=== PATIENT | male | born 1955 | race Caucasian/White ===

== ENCOUNTER 2023-08-26 12:27 | Emergency (ER) | payer MEDICARE, SELFPAY ==
[2023-08-26 12:40] VITALS: BP 214/96; PULSE 87; RESP 22; TEMP 36.8; O2SAT 99; BMI 28.0
--- NOTE | 2023-08-26 12:49 | XR_ITS ---
PROCEDURE INFORMATION: Exam: XR Right Wrist Exam date and time: 08/26/2023 1:08 PM Age: 68 years old Clinical indication: Pain; Wrist; Right; Additional info: Hurt it throwing net TECHNIQUE: Imaging protocol: Radiologic exam of the right wrist. Views: 3 or more views. COMPARISON: No relevant prior studies available. FINDINGS: Bones/joints: Normal. Soft tissues: Mild diffuse soft tissue swelling IMPRESSION: No evidence of acute osseous injury.
--- NOTE | 2023-08-26 13:18 | EXP.UTC ---
Discharge Plan Disposition Patient Disposition: Home, Self-Care Condition: Good Prescriptions Prescriptions: No Action No Known Home Medications Referrals Follow up/Referrals: Provider,Referral, MD [Primary Care Provider] - See instructions Activity Restrictions/Add. Instructions Additional Instructions/Restrictions: *RICE, Rest the extremity, Ice 15-20 minutes 3-4 times daily, Compress- wear the isaac wrap as discussed as much as possible to help reduce swelling and pain, Elevate the extremity when at rest *Velcro Wrist splint is for support and help control swelling, use it except in the shower. Be sure that is not to tight but not to loose either *Elevate when resting? *Ibuprofen 600-800mg every 6-8 hours as needed for pain an inflammation. If need something more can take Tylenol in between doses of Ibuprofen to help Immediately follow up with your family doctor for new or worsening of symptoms, or no noticeable improvement over the next 3-5 days Clinical Impressions Clinical Impression: Right wrist sprain Qualifiers: Encounter type: initial encounter Qualified Code(s): S63.501A - Unspecified sprain of right wrist, initial encounter Instructions Patient Instructions: Wrist Sprain, DI for Wrist Sprain, How To Perform RICE (Rest, Ice, Compress, Elevate) Discharge ED Provider: Daria Manriquez [facility] General Stated complaint: ao 08/25 right wrist pain Mode of Arrival: Ambulatory Source of Information: Patient Limitations: No Limitations Time Seen by Provider: 08/26/23 13:18 Description of Symptoms (Recalled from Triage Doc. by RN): PATIENT C/O PAIN TO RIGHT WRIST THAT STARTED AFTER HE WAS THROWING A FISHING NET TODAY HEENT Symptoms (Recalled from RN notes): No Resp Symptoms (Recalled from RN notes): No Skin Symptoms (Recalled from RN notes): No MS Symptoms (Recalled from RN notes): Yes Functional Status (Recalled from RN notes): WNL History of Present Illness Provider Complaint: Patient states that he was throwing a fish net earlier trying to catch minnows and started having pain in his right wrist States pain is worse when he moves it certain ways so he wanted to come in and get it checked Related Data Home Medications Medication Instructions Recorded Confirmed No Known Home Medications 08/26/23 08/26/23 Allergies Allergy/AdvReac Type Severity Reaction Status Date / Time tramadol AdvReac Verified 06/11/17 17:32 Worker's Comp Is this a Worker's Comp case?: No [facility] Disclaimer: The information contained in this section may have been updated after the patient was seen, as this information can be updated by other users. Social History Smoking Status: Unknown if ever smoked alcohol intake: never current occupational status: unemployed Travel in the last 8 weeks: None ROS Obtained: Yes All systems reviewed & no additional complaints except as documented and Yes Systems reviewed as appropriate & no additional complaints except as documented Constitutional Constitutional: Reports system reviewed and no additional complaints, except as documented and Reports as per HPI ENT Ears, Nose, Mouth, and Throat: Reports system reviewed and no additional complaints, except as documented and Reports as per HPI Cardiovascular Cardiovascular: Reports system reviewed and no additional complaints, except as documented and Reports as per HPI Respiratory Respiratory: Reports system reviewed and no additional complaints, except as documented and Reports as per HPI Gastrointestinal Gastrointestingal: Reports system reviewed and no additional complaints, except as documented and as per HPI Musculoskeletal Musculoskeletal: Reports system reviewed and no additional complaints, except as documented, Reports as per HPI and Reports other (Pain in right wrist with movement after hurting it throwing a net) Physical Exam General General appearance: alert and in no apparent distress ENT ENT exam: Present mucous membranes moist Respiratory Respiratory exam: Present normal lung sounds bilaterally; Absent respiratory distress or wheezes Cardiovascular Cardiovascular exam: Present regular rate, normal rhythm and normal heart sounds Expanded Upper Extremity Exam Right: Forearm/Wrist exam: Present tenderness; Absent swelling Neurological Exam Neurological exam: Present alert, oriented X3 and normal gait Medical Decision Making Travis Inquiry Pt receiving controlled substance: No Travis was queried for this patient: No Vital Signs: 08/26/23 12:40 Temperature 98.2 F Temperature Source Oral Pulse Rate [Left Brachial] 87 Respiratory Rate 22 Blood Pressure [Left Arm] 214/96 H Blood Pressure Mean [Left Arm] 135 Blood Pressure Source [Left Arm] Automatic Cuff Blood Pressure Position [Left Arm] Sitting 02 Sat by Pulse Oximetry 99 Oxygen Delivery Method Room Air Orders (Tests/Meds): ORDERS Category Date Time Status Wrist XR right minimum 3 views [XR wrist RT min 3V] Exams 08/26/23 12:49 Ordered Stat Radiology Data #1: Image(s): Wrist Image Reviewed: Yes I have reviewed radiologist's interpretation FINDINGS: Bones/joints: Normal. Soft tissues: Mild diffuse soft tissue swelling IMPRESSION: No evidence of acute osseous injury. Medical Decision Narrative: Patients blood pressure found to be elevated Concerned with how high his blood pressure was discussed with patient and recommended transfer to the ED for further evaluation and treatment and he declined States he isnt here for his blood pressure he is here for his wrist, Discussed with starting him on something for his blood pressure and have him follow up with PCP patient states they give him medication years ago and he threw it in the trash then and didnt want it now Patient was educated on risks even and he still declined transfer Patient standing in door has velcro wrist splint on States he does not want to wait for xray results he was going to leave, again discussed with patient about treatment for or transfer too the ED due to blood pressure and again he declined both states he wasnt here for the Blood pressure he did not wanted treated for it Patient given strict return precautions and will call if anything seen on xray
[2023-08-26 13:59] VITALS: BP 214/96; PULSE 87; RESP 22; TEMP 36.8; O2SAT 99
== END 2023-08-26 14:07 | disposition home or self-care (01) ==
PROVIDERS: Emergency Provider Nurse Practitioner
DX: S63.501A Unspecified sprain of right wrist, initial encounter (principal); X50.0XXA Overexertion from strenuous movement or load, initial encounter
CPT/HCPCS: 73110; 99203; 99212; G0463

== ENCOUNTER 2023-10-04 13:42 | Emergency (ER) | payer MEDICARE, SELFPAY ==
[2023-10-04 13:42] VITALS: BP 188/92; PULSE 86; RESP 20; TEMP 36.9; O2SAT 98; BMI 28.2
[2023-10-04] MEDS: LACTATED RINGERS 1000ML 1,000 ML 999 ML IV (14:03)
--- NOTE | 2023-10-04 14:06 | ECG_ITS ---
APPROVED REPORT Exam: Resting ECG HR:76 bpm ECG Measurements Heart Rate 76 AXES NM 159 P 59 QRSd 86 QRS 20 QT 354 T 29 QTc 385 Conclusion SINUS RHYTHM NORMAL ECG Electronically signed by : WALDO CORONADO, 10/09/2023 18:25:05
[2023-10-04 14:07] LABS: Microscopic, Urine URINE MICROSCOPIC (MICROSCOPIC)
[2023-10-04 14:08] LABS: Basophils # 0.1 K/mm3 (0-0.2); Basophils % 0.8 % (0.1-2.0); Eosinophils # 0.2 K/mm3 (0.0-0.4); Hematocrit 46.9 % (42.0-52.0); Hemoglobin 15.1 g/dL (14.1-18.0); Lymphocytes # 1.8 K/mm3 (0.7-4.5); Lymphocytes % 17.6 % (10-50); Mean Corpuscular HGB Conc 32.3 g/dL (31.8-35.4); Mean Corpuscular Hemoglobin 30.3 pg (27.0-31.2); Mean Corpuscular Volume 93.9 fl (80-94); Mean Platelet Volume 9.3 fl (7.4-10.4); Monocytes # 0.5 K/mm3 (0.1-1.0); Monocytes % 5.3 % (1.7-9.3); Neutrophils # 7.6 K/mm3 (1.8-7.8); Neutrophils % 74.3 % (37.0-80.0); Platelet Count 310 K/mm3 (142-424); Red Blood Count 4.99 M/mm3 (4.60-6.20); Red Cell Distribution Width 14.2 % (11.5-17.5); White Blood Count 10.2 K/mm3 (4.8-10.8)
--- NOTE | 2023-10-04 14:08 | ED_ITS ---
Discharge Plan Disposition Patient Disposition: Home, Self-Care Condition: Good Prescriptions Prescriptions: No Action No Known Home Medications Referrals Follow up/Referrals: Sandra Capellan APRN [Primary Care Provider] - See instructions Activity Restrictions/Add. Instructions Additional Instructions/Restrictions: Please have adequate p.o. intake, drink plenty of fluids, Gatorade/water, limit working out in heat conditions, take frequent breaks follow-up primary care provider. Clinical Impressions Clinical Impression: Near syncope Instructions Patient Instructions: DI for Muscle Weakness Print Language Print Language: Armenian Discharge ED Provider: Cm Tracy General Adult HPI <JIMMY Chambers - Last Filed: 10/04/23 14:49> General Chief complaint: Weakness Stated complaint: Heat Exposure Time Seen by Provider: 10/04/23 14:07 Mode of Arrival: Ambulatory Source of Information: Patient and EMS Limitations: No Limitations Description of Symptoms (Recalled from ER Triage Doc. by RN): pt was working out in heat and got dizzy and high bp and felt light headed and neighbor called 911 History of Present Illness HPI narrative: 68-year-old male presents emergency department for near syncope/presyncopal episode, prior to arrival, patient states he was weed eating , when he started feeling faint, he denies any true LOC, denies striking her head, denies any fever, chills, chest pain, shortness of breath, states he had a headache after the episode, but this is resolved, denies any nausea, abdominal pain, constipation, diarrhea, vomiting, denies any urinary type symptomatology. Denies any dizziness or weakness currently. He states he feels fine . The past medical history consistent with CAD, hypertension, prior data deficient CVA/TIAs only other medication he takes at home is metoprolol, he is a current everyday smoker, denies any alcohol or drug use. Initial triage vitals are remarkable. Onset (ago): minute(s) Related Data Home Medications ?Medication ?Instructions ?Recorded ?Confirmed No Known Home Medications 08/26/23 08/26/23 Allergies Allergy/AdvReac Type Severity Reaction Status Date / Time tramadol AdvReac Verified 06/11/17 17:32 PFSH <JIMMY Chambers - Last Filed: 10/04/23 14:49> [facility] Disclaimer: The information contained in this section may have been updated after the patient was seen, as this information can be updated by other users. Social History (Updated 08/26/23 @ 14:05 by Daria Manriquez APRN) Smoking Status: Current every day smoker alcohol intake: never current occupational status: unemployed Travel in the last 8 weeks: None <JIMMY Chambers - Last Filed: 10/04/23 14:49> ROS Obtained: Yes All systems reviewed & no additional complaints except as documented Physical Exam <JIMMY Chambers - Last Filed: 10/04/23 14:49> General General appearance: alert and in no apparent distress Head Head exam: atraumatic and normocephalic Eye Eye exam: Present PERRL and EOMI ENT ENT exam: Present mucous membranes moist Neck Neck exam: Present normal inspection Chest Chest inspection: Present normal inspection and symmetric chest wall rise Respiratory Respiratory exam: Present normal lung sounds bilaterally; Absent respiratory distress Cardiovascular Cardiovascular exam: Present regular rate and normal rhythm Abdominal Exam Abdominal exam: Present soft; Absent tenderness Extremities Exam Extremities exam: Present normal inspection Neurological Exam Neurological exam: Present alert and oriented X3 Psychiatric Psychiatric exam: Present normal affect Skin Skin exam: Present warm and dry Medical Decision Making <JIMMY Chambers - Last Filed: 10/04/23 14:49> Medical Records Medical records reviewed: Yes I reviewed the patient's medical records. Travis Inquiry Pt receiving controlled substance: No Travis was queried for this patient: No Vital Signs: 10/04/23 13:42 10/04/23 14:30 10/04/23 14:51 Temperature 98.4 F 98.4 F Temperature Source Oral Oral Pulse Rate 72 78 Pulse Rate [Right Radial] 86 Respiratory Rate 20 16 20 Blood Pressure 155/70 H 155/70 H Blood Pressure [Right Arm] 188/92 H Blood Pressure Mean 98 Blood Pressure Mean [Right Arm] 124 Blood Pressure Source Automatic Cuff 02 Sat by Pulse Oximetry 98 95 Oxygen Delivery Method Room Air Room Air Lab Data Lab Results 10/04/23 13:50: Urine Color Yellow, Urine Appearance Clear, Urine pH 6.0, Ur Specific [place] >= 1.030, Urine Protein Negative, Urine Glucose (UA) Negative, Urine Ketones Negative, Urine Blood Negative, Urine Nitrate Negative, Urine Bilirubin 1+ A, Urine Urobilinogen 1.0, Ur Leukocyte Esterase Negative, Urine RBC None, Urine WBC None, Ur Squamous Epith Cells None, Urine Bacteria None 10/04/23 14:00: WBC 10.2, RBC 4.99, Hgb 15.1, Hct 46.9, MCV 93.9, MCH 30.3, MCHC 32.3, RDW 14.2, Plt Count 310, MPV 9.3, Neut % (Auto) 74.3, Lymph % (Auto) 17.6, [place] % (Auto) 5.3, Eos % (Auto) 2.0, Baso % (Auto) 0.8, Neut # (Auto) 7.6, Lymph # (Auto) 1.8, [place] # (Auto) 0.5, Eos # (Auto) 0.2, Baso # (Auto) 0.1, Sodium 139, Potassium 3.8, Chloride 110 H, Carbon Dioxide 22, Anion Gap 10.8, BUN 20, Creatinine 1.20, Estimated Creat Clear 64, Estimated GFR 60, Est GFR ( Amer) 72, Glucose 127 H, Calcium 8.7, Total Bilirubin 0.9, AST 30, ALT 25, Alkaline Phosphatase 46, Troponin I < 0.01, Total Protein 7.1, Albumin 4.2, Globulin 2.9, Albumin/Globulin Ratio 1.4 10/04/23 14:00 10/04/23 14:00 Orders (Tests/Meds): ED MEDICATIONS Discontinued Medications Generic Name Dose Route Start Last Admin Trade Name Freq PRN Reason Stop Dose Admin Lactated Ringer's 1,000 mls @ 999 mls/hr 10/04/23 14:01 10/04/23 14:03 Lactated Ringer's 1000 Ml Bag IV 10/04/23 15:01 999 mls/hr .Q1H1M ONE Administration ORDERS Category Date Time Status Complete Blood Count Auto Diff Stat Lab 10/04/23 14:00 Completed Comprehensive Metabolic Panel Stat Lab 10/04/23 14:00 Completed Troponin I Stat Lab 10/04/23 14:00 Completed Urinalysis and Microscopic Stat Lab 10/04/23 13:50 Completed Medical Decision Narrative: 68-year-old male presents emergency department for a presyncope/near syncopal episode just prior to arrival, differential diagnose include but not limited to, vasovagal syncope, situational sigmoid, cardiogenic syncope, heat related illness, acute dehydration, JESUS, cardiac arrhythmia, electrolyte disturbance. Obtain CBC CMP, troponin, EKG, urinalysis for further evaluation of characterization, will give 1 L LR IV for fluid resuscitation. Reviewed the patient's EKG, NSR at 76 bpm, ME interval and QT interval within normal limits, no STEMI CBC unremarkable CMP notable for mildly elevated chloride level at 110 Remainder of CMP is unremarkable, troponin is within normal limits Urinalysis grossly unremarkable. Patient states he would like to go home , he states he will drink adequate p.o. intake, he has not yet finished his IV fluid administration, and he reviews remainder of his fluids. Strict ED return precautions given to the patient family the bedside, patient pain agreement current treatment plan/discharge plan, was likely this is a presyncopal episode, could be due to heat related illness, discussed with the patient, patient will follow-up with PCP as directed. Patient voiced understanding agreement current treatment plan/discharge plan. Patient has no other red flag signs and symptoms, vitals remained hemodynamically stable throughout his time in the emergency department. <Issac Orta MD - Last Filed: 10/05/23 14:57> Vital Signs: 10/04/23 13:42 10/04/23 14:30 10/04/23 14:51 Temperature 98.4 F 98.4 F Temperature Source Oral Oral Pulse Rate 72 78 Pulse Rate [Right Radial] 86 Respiratory Rate 20 16 20 Blood Pressure 155/70 H 155/70 H Blood Pressure [Right Arm] 188/92 H Blood Pressure Mean 98 Blood Pressure Mean [Right Arm] 124 Blood Pressure Source Automatic Cuff 02 Sat by Pulse Oximetry 98 95 Oxygen Delivery Method Room Air Room Air Lab Data Lab Results 10/04/23 13:50: Urine Color Yellow, Urine Appearance Clear, Urine pH 6.0, Ur Specific [place] >= 1.030, Urine Protein Negative, Urine Glucose (UA) Negative, Urine Ketones Negative, Urine Blood Negative, Urine Nitrate Negative, Urine Bilirubin 1+ A, Urine Urobilinogen 1.0, Ur Leukocyte Esterase Negative, Urine RBC None, Urine WBC None, Ur Squamous Epith Cells None, Urine Bacteria None 10/04/23 14:00: WBC 10.2, RBC 4.99, Hgb 15.1, Hct 46.9, MCV 93.9, MCH 30.3, MCHC 32.3, RDW 14.2, Plt Count 310, MPV 9.3, Neut % (Auto) 74.3, Lymph % (Auto) 17.6, [place] % (Auto) 5.3, Eos % (Auto) 2.0, Baso % (Auto) 0.8, Neut # (Auto) 7.6, Lymph # (Auto) 1.8, [place] # (Auto) 0.5, Eos # (Auto) 0.2, Baso # (Auto) 0.1, Sodium 139, Potassium 3.8, Chloride 110 H, Carbon Dioxide 22, Anion Gap 10.8, BUN 20, Creatinine 1.20, Estimated Creat Clear 64, Estimated GFR 60, Est GFR ( Amer) 72, Glucose 127 H, Calcium 8.7, Total Bilirubin 0.9, AST 30, ALT 25, Alkaline Phosphatase 46, Troponin I < 0.01, Total Protein 7.1, Albumin 4.2, Globulin 2.9, Albumin/Globulin Ratio 1.4 Orders (Tests/Meds): ED MEDICATIONS Discontinued Medications Generic Name Dose Route Start Last Admin Trade Name Freq PRN Reason Stop Dose Admin Lactated Ringer's 1,000 mls @ 999 mls/hr 10/04/23 14:01 10/04/23 14:03 Lactated Ringer's 1000 Ml Bag IV 10/04/23 15:01 999 mls/hr .Q1H1M ONE Administration ORDERS Category Date Time Status Complete Blood Count Auto Diff Stat Lab 10/04/23 14:00 Completed Comprehensive Metabolic Panel Stat Lab 10/04/23 14:00 Completed Troponin I Stat Lab 10/04/23 14:00 Completed Urinalysis and Microscopic Stat Lab 10/04/23 13:50 Completed Medical Decision Narrative: 68-year-old male presents emergency department for a presyncope/near syncopal episode just prior to arrival, differential diagnose include but not limited to, vasovagal syncope, situational sigmoid, cardiogenic syncope, heat related illness, acute dehydration, JESUS, cardiac arrhythmia, electrolyte disturbance. Obtain CBC CMP, troponin, EKG, urinalysis for further evaluation of characterization, will give 1 L LR IV for fluid resuscitation. Reviewed the patient's EKG, NSR at 76 bpm, ME interval and QT interval within normal limits, no STEMI CBC unremarkable CMP notable for mildly elevated chloride level at 110 Remainder of CMP is unremarkable, troponin is within normal limits Urinalysis grossly unremarkable. Patient states he would like to go home , he states he will drink adequate p.o. intake, he has not yet finished his IV fluid administration, and he reviews remainder of his fluids. Strict ED return precautions given to the patient family the bedside, patient pain agreement current treatment plan/discharge plan, was likely this is a presyncopal episode, could be due to heat related illness, discussed with the patient, patient will follow-up with PCP as directed. Patient voiced understanding agreement current treatment plan/discharge plan. Patient has no other red flag signs and symptoms, vitals remained hemodynamically stable throughout his time in the emergency department. I was consulted by the CHAPARRITA, and we discussed the complexity of the problems being addressed. I approved the treatment and management plan for this patient's care in the Emergency Department, thus performing a substantive portion of the medical decision making. Issac Orta MD Critical Care <JIMMY Chambers - Last Filed: 10/04/23 14:49> Critical Care Time Critical Care Time: No
[2023-10-04 14:16] LABS: Appearance,Urine CLEAR (Clear); Blood, Urine Negative (Negative); Color,Urine YELLOW (Yellow); Glucose,Urine (UA) Negative (Negative); Ketones,Urine Negative (Negative); Leukocyte Esterase,Urine Negative (Negative); Nitrate,Urine Negative (Negative); Protein,Urine Negative (Negative); Specific Gravity, Urine >= 1.030 (1.005-1.030)
[2023-10-04 14:21] LABS: Bilirubin,Urine 1+ (Negative)
[2023-10-04 14:21] LABS: Albumin Level 4.2 g/dl (3.5-5.0); Chloride 110 mmol/L (98-107); Potassium 3.8 mmoL/L (3.5-5.1); Sodium 139 mmol/L (136-145)
[2023-10-04 14:24] LABS: Alanine Aminotransferase 25 U/L (12-78); Albumin/Globulin Ratio 1.4 (1.1-1.8); Alkaline Phosphatase 46 U/L (38-126); Anion Gap 10.8 mEq/L (5-15); Aspartate Amino Transferase 30 U/L (17-59); Bilirubin,Total 0.9 mg/dl (0.2-1.3); Blood Urea Nitrogen 20 mg/dl (9-20); Calcium 8.7 mg/dl (8.4-10.2); Carbon Dioxide 22 mmol/L (22.0-30.0); Creatinine Clearance Estimated 64 mL/min (50-200); Estimated Glomerular Filt Rate 60 ml/min (>60); GFR (African American) 72 ML/MIN (>60); Globulin 2.9 g/dL (1.3-3.2); Glucose 127 mg/dl (74-100); Total Protein,Serum 7.1 g/dl (6.3-8.2)
[2023-10-04 14:30] VITALS: BP 155/70; PULSE 72; RESP 16; O2SAT 95
[2023-10-04 14:44] LABS: Troponin I < 0.01 ng/ml (0.00-0.034)
[2023-10-04 14:51] VITALS: BP 155/70; PULSE 78; RESP 20; TEMP 36.9; O2SAT 98
== END 2023-10-04 15:04 | disposition home or self-care (01) ==
PROVIDERS: Emergency Provider Student in an Organized Health Care Education/Training Program; PCP Nurse Practitioner Family
DX: R55 Syncope and collapse (principal); R42 Dizziness and giddiness; R51.9 Headache, unspecified; I25.10 Atherosclerotic heart disease of native coronary artery without angina pectoris; I10 Essential (primary) hypertension; F17.200 Nicotine dependence, unspecified, uncomplicated; T67.9XXA Effect of heat and light, unspecified, initial encounter
CPT/HCPCS: 80053; 81001; 84484; 85025; 93005; 96360; 99285; J7120

== ENCOUNTER 2023-11-15 18:34 | Emergency (ER) | payer MEDICARE, SELFPAY ==
[2023-11-15 18:35] VITALS: BP 181/87; PULSE 79; RESP 20; TEMP 36.8; O2SAT 99; BMI 25.8
--- NOTE | 2023-11-15 18:47 | HMH.EDGENADL ---
Discharge Plan Disposition Patient Disposition: Home, Self-Care Condition: Good Chief Complaint: Recheck/Abnormal Lab/Rx Prescriptions Prescriptions: No Action No Known Home Medications Referrals Follow up/Referrals: Sandra Capellan APRN [Primary Care Provider] - See instructions Activity Restrictions/Add. Instructions Additional Instructions/Restrictions: You can take [id number] Benadryl every 8 hours at home for continued itchiness and skin irritation. If you develop any new or worsening symptoms, such as difficulty breathing, or if you become concerned for your health for any reason, return to the emergency department for evaluation. Clinical Impressions Clinical Impression: Chemical exposure, Itching Print Language Print Language: Kinyarwanda Discharge ED Provider: Cm Tracy General Adult HPI General Chief complaint: Recheck/Abnormal Lab/Rx Stated complaint: weak, nausea Time Seen by Provider: 11/15/23 18:45 History of Present Illness HPI narrative: Janak Dewey is a 68M with a history of hypertension and previous drug use who presents to the emergency department for complaints of chemical exposure. Patient states that all day today, his neighbor in his apartment complex has been mixing Shout, Clorox, and Dawnie while cleaning there in time. Patient feels like these chemicals have got into the air and are irritating his face and throat as he is describing itchiness to his entire face and scratchiness in his throat. Reports some nausea with this as well. He states that he approaches his neighbor about this and his landlord as well as the police who all stated that they cannot do anything about this because these are not illegal chemicals. Patient reports 1 episode of vomiting after eating chili tonight but is mostly complaining of itchiness to his face. He denies any rashes. He notes that he has not taken his blood pressure pill tonight, which is due at this time. He denies any fevers. patient denies any additional possible allergic exposures, denying any new foods or detergents or soaps. Related Data Home Medications ?Medication ?Instructions ?Recorded ?Confirmed No Known Home Medications 08/26/23 08/26/23 Allergies Allergy/AdvReac Type Severity Reaction Status Date / Time tramadol AdvReac Verified 06/11/17 17:32 [facility] Disclaimer: The information contained in this section may have been updated after the patient was seen, as this information can be updated by other users. Social History (Updated 08/26/23 @ 14:05 by Daria Manriquez APRN) Smoking Status: Current every day smoker alcohol intake: never current occupational status: unemployed Travel in the last 8 weeks: None ROS Obtained: Yes Systems reviewed as appropriate & no additional complaints except as documented Physical Exam General General appearance: alert and in no apparent distress Head Head exam: atraumatic Eye Eye exam: Present normal appearance ENT ENT exam: Present normal exam, normal oropharynx, mucous membranes moist and normal external ear exam Neck Neck exam: Present full ROM Chest Chest inspection: Present symmetric chest wall rise Respiratory Respiratory exam: Present normal lung sounds bilaterally; Absent respiratory distress, wheezes or stridor Cardiovascular Cardiovascular exam: Present regular rate and normal rhythm Abdominal Exam Abdominal exam: Present soft; Absent tenderness or guarding exam: Present deferred Extremities Exam Extremities exam: Present normal inspection Back Exam Back exam: Present normal inspection Neurological Exam Neurological exam: Present alert and oriented X3 Psychiatric Psychiatric exam: Present normal affect Skin Skin exam: Present warm and dry Medical Decision Making Medical Records Medical records reviewed: Yes I reviewed the patient's medical records. Screening: Per USPSTF and CDC recommendations, given the prevalence of disease in our region, it is our hospital?s policy to screen for HIV and viral Hepatitis for all patients aged 18 and over and those with ongoing risk factors. Travis Inquiry Pt receiving controlled substance: No Vital Signs: 11/15/23 18:35 Temperature 98.2 F Temperature Source Oral Pulse Rate [Right Radial] 79 Respiratory Rate 20 Blood Pressure [Right Arm] 181/87 H Blood Pressure Mean [Right Arm] 118 02 Sat by Pulse Oximetry 99 Oxygen Delivery Method Room Air Orders (Tests/Meds): ED MEDICATIONS Generic Name Dose Route Start Last Admin Trade Name Freq PRN Reason Stop Dose Admin Diphenhydramine HCl 25 mg 11/15/23 18:59 Diphenhydramine 50mg Capsule PO 11/15/23 19:00 ONCE ONE Medical Decision Narrative: Janak Dewey 68M with a past medical history of hypertension presenting to the emergency department for complaints of itchiness and burning sensation to his face and throat as well as nausea and 1 episode of nonbloody nonbilious vomiting thought to be from a chemical exposure from his neighbor using house cleaning products. On arrival, patient is hypertensive but otherwise hemodynamically stable, breathing comfortably on room air with oxygen saturation at 99% SpO2. Physical exam, stated above, demonstrating overall well-appearing male in no acute distress. He does not have any rashes or swelling of the face. Oropharyngeal exam is unremarkable without erythema or tonsillar swelling or exudates. He is maintaining his airway appropriately and does not appear to be in any distress. Abdomen is soft, nontender nondistended. Cardiopulmonary exam is unremarkable for any wheezes or other abnormal findings. Differential diagnosis: chemical exposure, allergic reaction, anaphylaxis, viral pharyngitis, among others. Given the patient's overall well clinical appearance, reassuring vital signs and exam, as well as history, is felt that no additional workup is indicated at this time. Patient does not meet criteria for anaphylaxis on there is low concern for any significant allergic reaction at this time, however will treat his itchiness and nausea with 25 mg p.o. Benadryl. Patient was encouraged to open a window to allow the chemicals to flow outside the house/apartment complex. He was made aware that Benadryl is available [id number] if his itchiness improves. Return precautions were given, that included anaphylaxis type symptoms, such as difficulty breathing, uncontrolled nausea vomiting, rash, diarrhea, etc. All questions were answered. He demonstrated understanding and was in agreement with this plan. The patient was then discharged from the emergency department in stable condition. Critical Care Critical Care Time Critical Care Time: No
[2023-11-15 19:00] VITALS: BP 157/78; PULSE 74; O2SAT 98
[2023-11-15] MEDS: diphenhydrAMINE 25MG CAPSULE 25 MG PO (19:07)
[2023-11-15 19:16] VITALS: BP 156/79; PULSE 80; RESP 20; TEMP 36.8; O2SAT 98
== END 2023-11-15 19:18 | disposition home or self-care (01) ==
PROVIDERS: Emergency Provider Student in an Organized Health Care Education/Training Program; PCP Nurse Practitioner Family
DX: L29.89 Other pruritus (principal); R07.0 Pain in throat; R11.0 Nausea; Z77.098 Contact with and (suspected) exposure to other hazardous, chiefly nonmedicinal, chemicals
CPT/HCPCS: 99282